=== PATIENT | female | born 1985 ===

== ENCOUNTER 2021-04-22 12:45 | Inpatient (IN) | payer OTHER ==
[~2021-04-22] VITALS: Ht 160 cm; Wt 77.1 kg
== END 2021-04-24 13:10 | disposition home or self-care (01) | DRG 807 ==
LOC: LDR 16:27 → OB/GYN 22:48
PROVIDERS: ADMIT Specialist; ATTEND Specialist
PROC: 10E0XZZ Delivery of Products of Conception, External Approach (ICD-10-PCS; principal; 2021-04-22)
PROC: 4A1HXFZ Monitoring of Products of Conception, Cardiac Rhythm, External Approach (ICD-10-PCS; 2021-04-22)
DX: O99.284 Endocrine, nutritional and metabolic diseases complicating childbirth (principal); Z37.0 Single live birth; E87.6 Hypokalemia; Z3A.39 39 weeks gestation of pregnancy